=== PATIENT | female | born 1955 | race Hispanic/Latino ===

== ENCOUNTER → 2018-08-22 10:38 | Outpatient (CLI) | payer BC, SELFPAY ==
--- NOTE | 2018-08-22 | DI.MG.S_ITS ---
BILATERAL DIGITAL SCREENING MAMMOGRAM 3D/2D WITH CAD: 08/22/2018 CLINICAL: Routine screening. Comparison is made to exams dated: 08/16/2017 mammogram, 07/19/2017 mammogram, 07/13/2016 mammogram, and 07/12/2015 mammogram - [facility]. The tissue of both breasts is heterogeneously dense. This may lower the sensitivity of mammography. Current study was also evaluated with a Computer Aided Detection (CAD) system. No significant masses, calcifications, or other findings are seen in either breast. There has been no significant interval change. IMPRESSION: NEGATIVE There is no mammographic evidence of malignancy. A 1 year screening mammogram is recommended. This exam was interpreted at Station ID: [id number]. NOTE: For mammograms, a report in lay terms will be sent to the patient. Approximately 15% of breast malignancies will not be visualized mammographically. In the management of a palpable breast mass, a negative mammogram must not discourage biopsy of a clinically suspicious lesion. Electronically Signed By: Hima jordan/adeel:08/22/2018 14:47:00 letter sent: Normal Exam ACR BI-RADS Category 1: Negative 3341F
== END ==
PROVIDERS: PCP Family Medicine; Visit Provider Family Medicine
DX: Z12.31 Encounter for screening mammogram for malignant neoplasm of breast (principal)
CPT/HCPCS: 77063; 77067

== ENCOUNTER → 2019-08-24 12:32 | Outpatient (CLI) | payer BC, SELFPAY ==
--- NOTE | 2019-08-24 | DI.MG.S_ITS ---
BILATERAL DIGITAL SCREENING MAMMOGRAM 3D/2D WITH CAD: 08/24/2019 CLINICAL: Routine screening. Comparison is made to exams dated: 08/22/2018 mammogram, 07/19/2017 mammogram, 07/13/2016 mammogram, and 07/12/2015 mammogram - [facility]. The tissue of both breasts is heterogeneously dense. This may lower the sensitivity of mammography. Current study was also evaluated with a Computer Aided Detection (CAD) system. No significant masses, calcifications, or other findings are seen in either breast. There has been no significant interval change. IMPRESSION: NEGATIVE There is no mammographic evidence of malignancy. A 1 year screening mammogram is recommended. This exam was interpreted at Station ID: [id number]. NOTE: For mammograms, a report in lay terms will be sent to the patient. Approximately 15% of breast malignancies will not be visualized mammographically. In the management of a palpable breast mass, a negative mammogram must not discourage biopsy of a clinically suspicious lesion. Electronically Signed By: Marek bernard/adeel:08/25/2019 18:05:56 letter sent: Normal Exam ACR BI-RADS Category 1: Negative 3341F
== END ==
PROVIDERS: PCP Family Medicine; Visit Provider Family Medicine
DX: Z12.31 Encounter for screening mammogram for malignant neoplasm of breast (principal)
CPT/HCPCS: 77063; 77067

== ENCOUNTER → 2020-11-07 09:57 | Outpatient (CLI) | payer BC, SELFPAY ==
--- NOTE | 2020-11-07 10:04 | DI.RAD.S_ITS ---
PROCEDURE: XR CALCANEOUS LT MIN 2V INDICATIONS: LT HEEL PAIN TECHNIQUE: Two views of the calcaneus were acquired. COMPARISON: None. FINDINGS: Bones: No fractures or dislocations. No suspicious bony lesions. Plantar calcaneal spur. Soft tissues: No suspicious calcifications. Achilles tendon appears normal. IMPRESSION: Plantar calcaneal spur. Dictated by: Hubert Lee M.D. on 11/07/2020 at 12:15 Approved by: Hubert Lee M.D. on 11/07/2020 at 12:16
== END ==
PROVIDERS: PCP Family Medicine; Referring Provider Family Medicine; Visit Provider Family Medicine
DX: M79.672 Pain in left foot (principal); M77.32 Calcaneal spur, left foot
CPT/HCPCS: 73650

== ENCOUNTER → 2020-11-11 14:56 | Outpatient (CLI) | payer BC, SELFPAY ==
[2020-11-11] MEDS: COVID-19 VACC #1, MRNA(MOD) 100 MCG/0.5 ML VIAL IM (15:21)
== END ==
PROVIDERS: PCP Family Medicine; Visit Provider Internal Medicine
DX: Z23 Encounter for immunization (principal)
CPT/HCPCS: 0011A; 91301

== ENCOUNTER → 2020-12-07 16:22 | Outpatient (CLI) | payer BC, SELFPAY ==
[2020-12-07] MEDS: COVID-19 VACC #2, MRNA(MOD) 100 MCG/0.5 ML VIAL IM (16:30)
== END ==
PROVIDERS: PCP Family Medicine; Visit Provider Internal Medicine
DX: Z23 Encounter for immunization (principal)
CPT/HCPCS: 0012A; 91301

== ENCOUNTER → 2022-07-07 11:53 | Outpatient (CLI) | payer MEDICARE, OTHER, SELFPAY | PROVIDERS: PCP Family Medicine; Visit Provider Registered Nurse | DX: N39.0 Urinary tract infection, site not specified (principal) | CPT/HCPCS: 87077; 87086; 87186 ==

== ENCOUNTER → 2022-11-13 12:53 | Outpatient (CLI) | payer MEDICARE, OTHER, SELFPAY ==
--- NOTE | 2022-11-13 | DI.MG.S_ITS ---
BILATERAL DIGITAL SCREENING MAMMOGRAM 3D/2D WITH CAD: 11/13/2022 CLINICAL: Routine screening. Comparison is made to exams dated: 08/24/2019 mammogram, 08/22/2018 mammogram, and 08/16/2017 mammogram - [facility]. Both breasts are heterogeneously dense, which may obscure small masses (category c / 51-75% glandular tissue). Current study was also evaluated with a Computer Aided Detection (CAD) system. There is possible developing architectural distortion in the right breast anterior depth lateral region seen on the craniocaudal view only. There is a possible developing irregular high density asymmetry in the left breast central to the nipple middle depth. No other significant masses or calcifications are seen in either breast. IMPRESSION: INCOMPLETE: NEEDS ADDITIONAL IMAGING EVALUATION The possible developing architectural distortion in the right breast anterior depth lateral region seen on the craniocaudal view only is indeterminate. Additional views with possible ultrasound are recommended. The possible developing irregular high density asymmetry in the left breast central to the nipple middle depth is indeterminate. Additional views with possible ultrasound are recommended. Based on the Tyrer Cuzick model (a risk assessment model) the patient's lifetime risk is 9.9% and her 10 year risk is 4.8%. According to the ACR, ACS, and NCCN guidelines, an annual breast MRI exam along with mammogram is recommended if the patient's lifetime risk is 20% or greater. This exam was interpreted at Station ID: [id number]. NOTE: For mammograms, a report in lay terms will be sent to the patient. Approximately 15% of breast malignancies will not be visualized mammographically. In the management of a palpable breast mass, a negative mammogram must not discourage biopsy of a clinically suspicious lesion. Electronically Signed By: Meghan vaughn/adeel:11/13/2022 15:31:33 letter sent: Additional Imaging Needed ACR BI-RADS Category 0: Incomplete 3340F
== END ==
PROVIDERS: PCP Family Medicine; Referring Provider Family Medicine; Visit Provider Family Medicine
DX: Z12.31 Encounter for screening mammogram for malignant neoplasm of breast (principal); Z78.0 Asymptomatic menopausal state; Z13.820 Encounter for screening for osteoporosis; M85.88 Other specified disorders of bone density and structure, other site
CPT/HCPCS: 77063; 77067; 77080

== ENCOUNTER → 2022-12-10 09:28 | Outpatient (CLI) | payer MEDICARE, OTHER, SELFPAY ==
--- NOTE | 2022-12-10 | DI.MG.S_ITS ---
BILATERAL DIGITAL DIAGNOSTIC MAMMOGRAM 3D/2D WITH ADDITIONAL VIEWS: 12/10/2022 CLINICAL: Additional evaluation requested from prior study. Comparison is made to exams dated: 11/13/2022 mammogram, 08/24/2019 mammogram, and 08/22/2018 mammogram - [facility]. Both breasts are heterogeneously dense, which may obscure small masses (category c / 51-75% glandular tissue). The possible architectural distortion in the right breast anterior depth lateral region seen on the craniocaudal view only is not reproduced and presumably represented superimposed breast tissue. There is an oval focal asymmetry with a circumscribed margin in the left breast at 6 o'clock anterior depth. This is seen in additional views. No other significant masses or calcifications are seen in either breast. IMPRESSION: INCOMPLETE: NEEDS ADDITIONAL IMAGING EVALUATION The oval focal asymmetry in the left breast at 6 o'clock anterior depth is indeterminate. An ultrasound is recommended. Based on the Tyrer Cuzick model (a risk assessment model) the patient's lifetime risk is 9.9% and her 10 year risk is 4.8%. According to the ACR, ACS, and NCCN guidelines, an annual breast MRI exam along with mammogram is recommended if the patient's lifetime risk is 20% or greater. This exam was interpreted at Station ID: [id number]. NOTE: For mammograms, a report in lay terms will be sent to the patient. Approximately 15% of breast malignancies will not be visualized mammographically. In the management of a palpable breast mass, a negative mammogram must not discourage biopsy of a clinically suspicious lesion. Electronically Signed By: Joshua lynn/adeel:12/10/2022 11:30:29 ACR BI-RADS Category 0: Incomplete 3340F
--- NOTE | 2022-12-10 09:29 | DI.US.S_ITS ---
LIMITED ULTRASOUND OF LEFT BREAST: 12/10/2022 CLINICAL: Patient returns today to evaluate a focal asymmetry in the left breast. Comparison is made to exams dated: 12/10/2022 mammogram, 11/13/2022 mammogram, 08/24/2019 mammogram, and 08/22/2018 mammogram - [facility]. Color flow ultrasound of the left breast 6 o'clock region was performed. Jacob scale images of the real-time examination were reviewed. There is a 0.7 cm x 0.6 cm x 0.5 cm oval cyst with a septated internal wall in the left breast at 6 o'clock anterior depth 3 cm from the nipple. This oval cyst is hypoechoic. This correlates with mammography findings. Color flow imaging demonstrates that there is no vascularity present. IMPRESSION: PROBABLY BENIGN The 0.7 cm x 0.6 cm x 0.5 cm oval cyst in the left breast is consistent with a complicated cyst and is probably benign. A follow-up left ultrasound in 6 months is recommended to demonstrate stability. This exam was interpreted at Station ID: [id number]. Electronically Signed By: Joshua lynn/adeel:12/10/2022 11:34:59 letter sent: Followup Recommended Ultrasound BI-RADS: 3 Probably benign
== END ==
PROVIDERS: PCP Family Medicine; Referring Provider Family Medicine; Visit Provider Family Medicine
DX: R92.8 Other abnormal and inconclusive findings on diagnostic imaging of breast (principal); N60.02 Solitary cyst of left breast
CPT/HCPCS: 76642; 77066; G0279

== ENCOUNTER → 2023-02-22 10:44 | Outpatient (CLI) | payer MEDICARE, OTHER, SELFPAY ==
--- NOTE | 2023-02-22 | DI.RAD.S_ITS ---
PROCEDURE: XR KNEE RT 3V INDICATIONS: Pain in right knee TECHNIQUE: 3 views of the knee were acquired. COMPARISON: None. FINDINGS: Bones: No fractures or dislocations. Mild tricompartmental osteoarthritis is seen with joint space narrowing and subchondral sclerosis. No significant patellar subluxation. No suspicious bony lesions. Soft tissues: No joint effusion. No suspicious soft tissue calcifications. IMPRESSION: No acute right knee fracture or dislocation. No significant joint effusion. Mild tricompartmental osteoarthritis. Dictated by: Denzel Cosby M.D. on 02/22/2023 at 11:22 Approved by: Denzel Cosby M.D. on 02/22/2023 at 11:23
== END ==
PROVIDERS: PCP Family Medicine; Referring Provider Family Medicine; Visit Provider Family Medicine
DX: M25.561 Pain in right knee (principal); M17.11 Unilateral primary osteoarthritis, right knee
CPT/HCPCS: 73562

== ENCOUNTER 2023-04-12 09:43 | Day surgery (SDC) | payer MEDICARE, OTHER, SELFPAY ==
--- NOTE | 2023-04-12 | PATH_ITS ---
[facility] Accession Number: [id number] No. of containers..02 Tissue . 01 Material submitted: . PART A: colon - DESCENDING COLON POLYP X2 PART B: rectum - RECTUM POLYP X3 . 01 Diagnosis: A. Descending Colon Polyp x2: Superficial portions of colorectal mucosa x 2, one with a benign lymphoid aggregate, with no significant histomorphologic abnormality. Additional levels through the block are non-contributory. . B. Rectum Polyp x3: Portions of hyperplastic polyp x2. Superficial portion of colorectal mucosa x1 with no significant histomorphologic abnormality. MRV 04/24/2023 1604 Local . 01 Electronically signed: . Alea Ascencio MD, Pathologist NPI- [id number] . 01 Gross description: . Part A: DESCENDING COLON POLYP X2: Received in formalin are 2 fragment(s) of garza, soft tissue measuring 0.1 x 0.1 x 0.1 cm to 0.2 x 0.2 x 0.2 cm submitted entirely in 1 cassette(s) Part B: RECTUM POLYP X3: Received in formalin are 2 fragment(s) of garza, soft tissue measuring 0.2 x 0.2 x 0.2 cm to 0.3 x 0.3 x 0.2 cm submitted entirely in 1 cassette(s) /CORDELL 04/19/2023 2323 Local . 01 Pathologist provided ICD-10: K63.5 . 01 CPT . 213457, [id number] Specimen Comment: A courtesy copy of this report has been sent to [facility] Pathology Performed at: 01 [facility] [address] [place] [address] [address], [place], [place] [id number] MD Hima Whitehead MD Phone: [phone]
[2023-04-12 10:07] VITALS: BP 180/96; PULSE 84; RESP 16; TEMP 36.4; O2SAT 97; BMI 24.0
[2023-04-12] MEDS: LACTATED RINGERS 1,000 ML 42 ML IV (10:28)
--- NOTE | 2023-04-12 11:42 | P.HP_ITS ---
History of Present Illness History of Present Illness Date Patient Seen: 04/12/23 Chief complaint: Colonoscopy, history of polyps Narrative: Mrs. Cuba is 67-year-old female who presents today for screening colonoscopy. She believes her last colonoscopy was about 10 years ago was here she is not sure she can not remember if she had polyps or not. There is a record of a history of polyps. She is no family history of colon cancer and has not had any concerning symptoms. She does report having had some difficulty with scheduling and confusing and disorganized messages from our staff. Otherwise she had no concern or question COUNT INCLUDES THE [facility] Surgical History History of tonsillectomy Status post cholecystectomy Status post surgery (02/25/15) Family History Mother Bladder cancer Bone cancer Social History household members: spouse Smoking Status: Never smoker alcohol intake: never Meds Home Medications and Allergies Home Medications Medication Instructions Recorded Confirmed Type atorvastatin 10 mg tablet 10 mg 04/12/23 History esomeprazole magnesium 40 mg 40 mg PO 3XD 04/12/23 04/12/23 History capsule,delayed release Allergies Allergy/AdvReac Type Severity Reaction Status Date / Time fish oil AdvReac Verified 04/12/23 09:54 Exam Vital Signs (past 8 hours): - 04/12/23 10:07 Temperature 97.5 F L Pulse Rate 84 Respiratory Rate 16 Blood Pressure 180/96 H Pulse Oximetry 97 Oxygen Delivery Method Room Air Oxygen Delivery Method Room Air Const General: cooperative, healthy appearing and comfortable Orientation: alert, awake and oriented x3 HENMT Head: normal to inspection Eyes General: appearance normal, both eyes and all related structures Neck Neck: normal visual inspection Resp Effort & Inspection: normal respiratory effort and able to speak in complete sentences GI Palpation: soft and No tender Assessment & Plan Assessment and plan (1) History of colon polyps: Status: Acute (2) Colon cancer screening: Status: Acute Assessment & Plan narrative: Presents today for screening colonoscopy I discussed the risks benefits and alternatives including but not limited to perforation of the colon and an incomplete exam she fully understands these risks and would like to proceed.
[2023-04-12 12:26] VITALS: BP 109/69; PULSE 67; RESP 10; TEMP 36.1; O2SAT 99
[2023-04-12 12:31] VITALS: BP 118/67; PULSE 71; RESP 19; O2SAT 100
[2023-04-12 12:36] VITALS: BP 128/73; PULSE 59; RESP 12; O2SAT 99
--- NOTE | 2023-04-12 12:39 | P.OP.COLON_ITS ---
Operative Date/Time/Diagnoses Date of procedure: 04/12/23 Time of procedure: 12:39 Pre-op diagnosis: Colon cancer screening, history of polyps Post-op diagnosis: same Procedure & Clinicians Study performed: Colonoscopy and biopsy Same procedure as scheduled: Yes Indications: Colon cancer screening, history of polyps Surgeon: Annamaria Chavez Procedure Notes Procedure in detail: Patient was taken to the endoscopy suite and placed in a left lateral decubitus position. A time-out was performed. With the help of anesthesiology provider conscious sedation was induced and monitored throughout the case. A digital rectal exam was performed and there were no masses or strictures. There were a few external anal skin tags. The colonoscope was introduced into the anal canal and advanced through to the cecum. A photograph of the appendiceal orifice was obtained. The bowel prep was good [place] bowel prep score of 2. Scope was then withdrawn and 2 small polyps were seen in the descending colon. The 1st was removed with a biopsy forceps and was quite small possibly not a true polyp. The 2nd 1 was also removed with 2 bites of the biopsy forceps but was though still small slightly larger and had a sessile appearance. Further withdrawal revealed several small rectal polyps 3 of the larger ones were removed and sent in a specimen container together. They all had the appearance of hyperplastic polyps. A photograph was obtained. There were a few irritated areas in the rectum likely from prep. The internal hemorrhoid piles appeared normal as the scope was withdrawn through the anal canal. The scope was withdrawn for a total of 20 minutes including biopsy times. Findings: divertiulosis and polyp(s) Specimen(s): other (1. Descending colon polyps x2 2. Rectal polyps x3) Complications: none Post-procedure Plan for aftercare: Probably a 3-5 year follow-up depending on the pathology of the polyps. I do recommend a fiber supplement.
[2023-04-12 12:40] VITALS: BP 122/93; PULSE 65; RESP 11; O2SAT 98
[2023-04-12 12:46] VITALS: BP 117/74; PULSE 60; RESP 10; TEMP 36.2; O2SAT 99
== END 2023-04-12 13:01 | disposition home or self-care (01) ==
PROVIDERS: PCP Family Medicine; Referring Provider Surgery; Visit Provider Surgery
PROC: 0DJD8ZZ Inspection of Lower Intestinal Tract, Via Natural or Artificial Opening Endoscopic (ICD-10-PCS; CPT 45378; principal; 2023-04-12 10:45)
DX: Z12.11 Encounter for screening for malignant neoplasm of colon (principal); Z86.010 Personal history of colon polyps; K62.1 Rectal polyp
CPT/HCPCS: 45380; J2704

== ENCOUNTER → 2023-06-10 08:14 | Outpatient (CLI) | payer MEDICARE, OTHER, SELFPAY ==
--- NOTE | 2023-06-10 | DI.US.S_ITS ---
LIMITED ULTRASOUND OF LEFT BREAST: 06/10/2023 CLINICAL: Patient returns today to evaluate a focal asymmetry in the left breast. Comparison is made to exams dated: 12/10/2022 ultrasound, 12/10/2022 mammogram, 11/13/2022 mammogram, 08/24/2019 mammogram, 08/22/2018 mammogram, and 08/16/2017 ultrasound - [facility]. Color flow and real-time ultrasound of the left breast 6 o'clock region were performed. Jacob scale images of the real-time examination were reviewed. There is a 0.6 cm x 0.6 cm x 0.6 cm oval complicated cyst with a septated internal wall in the left breast at 6 o'clock anterior depth 3 cm from the nipple. This abnormality is not significantly changed and correlates with mammography findings. Color flow imaging demonstrates that there is no vascularity present. IMPRESSION: PROBABLY BENIGN The 0.6 cm complicated cyst in the left breast is not significantly changed and is probably benign. A follow-up ultrasound in 6 months is recommended to demonstrate stability. Patient will be due for mammogram at that time. Exam findings were conveyed to the patient. Patient is advised to monitor for significant change. Clinical follow-up as needed. This exam was interpreted at Station ID: [id number]. Electronically Signed By: Bill Denney M.D. [facility] [place]06/10/2023 09:11:35 letter sent: Followup Recommended Ultrasound BI-RADS: 3 Probably benign
== END ==
PROVIDERS: PCP Family Medicine; Referring Provider Family Medicine; Visit Provider Family Medicine
DX: R92.8 Other abnormal and inconclusive findings on diagnostic imaging of breast (principal); N60.02 Solitary cyst of left breast
CPT/HCPCS: 76642

== ENCOUNTER → 2023-12-02 10:13 | Outpatient (CLI) | payer MEDICARE, OTHER, SELFPAY ==
--- NOTE | 2023-12-02 10:15 | DI.MG.S_ITS ---
BILATERAL DIGITAL DIAGNOSTIC MAMMOGRAM 3D/2D: 12/02/2023 CLINICAL: Short term follow up. Comparison is made to exams dated: 12/10/2022 mammogram, 11/13/2022 mammogram, and 08/24/2019 mammogram - [facility]. Both breasts are heterogeneously dense, which may obscure small masses (category c / 51-75% glandular tissue). The oval focal asymmetry with a circumscribed margin in the left breast at 6 o'clock anterior depth is stable. This is seen in additional views. No other significant masses, calcifications, or other findings are seen in either breast. Mammograms are otherwise stable. IMPRESSION: INCOMPLETE: NEEDS ADDITIONAL IMAGING EVALUATION Bilateral mammograms are stable. The oval focal asymmetry in the left breast is stable. An ultrasound is recommended to confirm stability. This was performed immediately following this exam. Based on the Tyrer Cuzick model (a risk assessment model) the patient's lifetime risk is 9.5% and her 10 year risk is 4.8%. According to the ACR, ACS, and NCCN guidelines, an annual breast MRI exam along with mammogram is recommended if the patient's lifetime risk is 20% or greater. This exam was interpreted at Station ID: [id number]. NOTE: For mammograms, a report in lay terms will be sent to the patient. Approximately 15% of breast malignancies will not be visualized mammographically. In the management of a palpable breast mass, a negative mammogram must not discourage biopsy of a clinically suspicious lesion. Electronically Signed By: Meghan vaughn/:12/02/2023 11:16:44 ACR BI-RADS Category 0: Incomplete 3340F
--- NOTE | 2023-12-02 10:16 | DI.US.S_ITS ---
LIMITED ULTRASOUND OF LEFT BREAST: 12/02/2023 CLINICAL: 6 month follow-up of cysts. Comparison is made to exams dated: 12/02/2023 mammogram, 06/10/2023 ultrasound, 12/10/2022 ultrasound, 12/10/2022 mammogram, 11/13/2022 mammogram, and 08/24/2019 mammogram - [facility]. Color flow ultrasound of the left breast 6 o'clock region was performed. Jacob scale images of the real-time examination were reviewed. There is a stable 0.6 cm x 0.5 cm x 0.4 cm irregular cluster of microcysts in the left breast at 6 o'clock anterior depth 3 cm from the nipple. This cluster is hypoechoic. This correlates with mammography findings. Color flow imaging demonstrates that there is no vascularity present. IMPRESSION: PROBABLY BENIGN The 0.6 cm cluster of cysts in the left breast is stable, consistent with apocrine metaplasia or a complicated cyst and is probably benign. A follow-up ultrasound in 6 months is recommended to demonstrate stability. Findings and recommendations were conveyed to the patient at time of exam. This exam was interpreted at Station ID: [id number]. Electronically Signed By: Meghan vaughn/:12/02/2023 11:46:17 letter sent: Followup Recommended Ultrasound BI-RADS: 3 Probably benign
== END ==
LOC: MAMMO 10:14
PROVIDERS: PCP Family Medicine; Referring Provider Family Medicine; Visit Provider Family Medicine
DX: R92.8 Other abnormal and inconclusive findings on diagnostic imaging of breast (principal); R92.333 Mammographic heterogeneous density, bilateral breasts; N60.02 Solitary cyst of left breast
CPT/HCPCS: 76642; 77066; G0279

== ENCOUNTER → 2024-03-17 10:27 | Outpatient (CLI) | payer MEDICARE, OTHER, SELFPAY ==
--- NOTE | 2024-03-17 11:01 | DI.RAD.S_ITS ---
PROCEDURE: XR KNEE LT 3V INDICATIONS: CHRONIC PAIN OF LEFT KNEE TECHNIQUE: 3 views of the knee were acquired. COMPARISON: [facility], CR, XR KNEE RT 3V, 02/22/2023, 10:43. FINDINGS: Bones: No fractures or dislocations. Tricompartmental osteoarthritic changes of the bilateral knees with mild osteophytosis and moderate medial compartment joint space narrowing bilaterally. No suspicious bony lesions. Soft tissues: Small joint effusion. No suspicious soft tissue calcifications. IMPRESSION: No acute osseous abnormalities. 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 Dictated by: Chidi Paz M.D. on 03/17/2024 at 12:33 Approved by: Chidi Paz M.D. on 03/17/2024 at 12:34
== END ==
PROVIDERS: PCP Family Medicine; Referring Provider Family Medicine; Visit Provider Family Medicine
DX: M25.562 Pain in left knee (principal); M25.462 Effusion, left knee; G89.29 Other chronic pain
CPT/HCPCS: 73562

== ENCOUNTER → 2024-06-22 08:33 | Outpatient (CLI) | payer MEDICARE, OTHER, SELFPAY ==
--- NOTE | 2024-06-22 08:34 | DI.US.S_ITS ---
LIMITED ULTRASOUND OF LEFT BREAST: 06/22/2024 CLINICAL: 6 month follow-up of cysts. Comparison is made to exams dated: 12/02/2023 ultrasound, 12/02/2023 mammogram, 06/10/2023 ultrasound, 12/10/2022 ultrasound, 12/10/2022 mammogram, and 11/13/2022 mammogram - [facility]. Color flow ultrasound of the left breast 6 o'clock region was performed. Jacob scale images of the real-time examination were reviewed. There is a 0.4 cm x 0.4 cm x 0.3 cm cluster of irregular cysts in the left breast at 6 o'clock anterior depth 3 cm from the nipple. This cluster of irregular cysts is hypoechoic. These abnormalities continue to decrease in size and represents a change and correlates with mammography findings. Color flow imaging demonstrates that there is no vascularity present. IMPRESSION: BENIGN There is no sonographic evidence of malignancy. The 0.4 cm x 0.4 cm x 0.3 cm cluster of irregular cysts in the left breast is consistent with apocrine metaplasia or a complicated cyst and is benign. Return to annual mammogram screening schedule is recommended (due approximately October 2024). Findings and recommendations were conveyed to the patient during today's evaluation. This exam was interpreted at Station ID: [id number]. Electronically Signed By: Douglas Anders M.D. [facility]/:06/22/2024 09:00:31 letter sent: Normal Exam Ultrasound BI-RADS: 2 Benign
== END ==
LOC: US 08:33
PROVIDERS: PCP Family Medicine; Referring Provider Family Medicine; Visit Provider Family Medicine
DX: R92.8 Other abnormal and inconclusive findings on diagnostic imaging of breast (principal); N60.02 Solitary cyst of left breast
CPT/HCPCS: 76642

== ENCOUNTER → 2024-12-07 11:24 | Outpatient (CLI) | payer MEDICARE, OTHER, SELFPAY ==
--- NOTE | 2024-12-07 11:26 | DI.MG.S_ITS ---
BILATERAL DIGITAL SCREENING MAMMOGRAM 3D/2D WITH CAD: 12/07/2024 CLINICAL: Routine screening. Comparison is made to exams dated: 12/02/2023 mammogram, 11/13/2022 mammogram, and 08/24/2019 mammogram - [facility]. There are scattered areas of fibroglandular density (category b / 25%-50% glandular tissue). Current study was also evaluated with a Computer Aided Detection (CAD) system. There is a possible developing high density asymmetry in the right breast middle depth superior region seen on the mediolateral oblique view only. No other significant masses, calcifications, or other findings are seen in either breast. IMPRESSION: INCOMPLETE: NEED ADDITIONAL IMAGING EVALUATION The possible developing high density asymmetry in the right breast most likely is fibroglandular tissue and is indeterminate. Additional views with possible ultrasound are recommended. Based on the Tyrer Cuzick model (a risk assessment model) the patient's lifetime risk is 6.0% and her 10 year risk is 3.2%. According to the ACR, ACS, and NCCN guidelines, an annual breast MRI exam along with mammogram is recommended if the patient's lifetime risk is 20% or greater. This exam was interpreted at Station ID: [id number]. NOTE: For mammograms, a report in lay terms will be sent to the patient. Approximately 15% of breast malignancies will not be visualized mammographically. In the management of a palpable breast mass, a negative mammogram must not discourage biopsy of a clinically suspicious lesion. Electronically Signed By: Meghan vaughn/adeel:12/07/2024 16:37:35 letter sent: Additional Imaging Needed ACR BI-RADS Category 0: Incomplete: Need Additional Imaging Evaluation
== END ==
PROVIDERS: PCP Family Medicine; Referring Provider Family Medicine; Visit Provider Family Medicine
DX: Z12.31 Encounter for screening mammogram for malignant neoplasm of breast (principal)
CPT/HCPCS: 77063; 77067

== ENCOUNTER → 2025-01-18 | Outpatient (CLI) | payer MEDICARE, OTHER, SELFPAY ==
--- NOTE | 2025-01-18 09:28 | DI.MG.S_ITS ---
MM diagnostic mammo unilat RT, US breast RT limited: 01/18/2025 BI-RADS: 3 CLINICAL: 69-year old female for right diagnostic mammogram and right diagnostic breast ultrasound. The patient presents for additional evaluation of an inconclusive screening mammogram - asymmetry. Tyrer-Cuzick lifetime risk of 5.2%. No personal or first-degree family history of breast cancer. PRIOR EXAMS 06/22/2024, 12/02/2023, 06/10/2023, 12/10/2022, 11/13/2022, 08/24/2019, 08/22/2018, 08/16/2017, 07/19/2017, 07/13/2016, 07/12/2015. MAMMOGRAPHY TECHNIQUE: 2D and 3D (tomosynthesis) digital mammographic views obtained, with additional images as needed for full coverage. Current study was also evaluated with a Computer Aided Detection (CAD) system. ULTRASOUND TECHNIQUE: Real-time resendiz scale and color doppler imaging of the area of clinical interest was performed with image documentation. TARGETED Right Breast Ultrasound: Real-time ultrasound exam was performed focused to area of clinical and/or imaging concern. DENSITY Right: C. The breasts are heterogeneously dense, which may obscure small masses. MAMMOGRAPHY FINDINGS Right (finding-1): MLO only, Upper, Middle depth: The questioned developing asymmetry does not persist with additional views and represents superimposition of normal fibroglandular breast tissue. ULTRASOUND FINDINGS Right: Upper Outer at 10:00, 5 cm from nipple, measuring 0.5 x 0.2 x 0.4 cm: This could represent a complicated cyst versus clustered microcysts. This is an incidental finding. Right (finding-1): Upper Outer Quadrant, 5 cm from nipple: There is no suspicious sonographic finding to account for imaging concern of an asymmetry on mammography. The area from 10-11 o'clock, 5 cm from the nipple was scanned. IMPRESSION: Right: Upper Outer at 10:00, 5 cm from nipple, measuring 0.5 x 0.2 x 0.4 cm * Probably Benign. RECOMMENDATIONS Right: Upper Outer at 10:00, 5 cm from nipple * Six month followup with diagnostic ultrasound. COMMENTS: Findings and recommendations were conveyed to the patient during today's evaluation. OVERALL ASSESSMENT CATEGORY BI-RADS-3: Probably Benign. ELECTRONICALLY SIGNED: Ilda Phillip M.D. on 01/18/2025 at 10:57:30 AM PT Interpreting Station ID: [id number]
== END ==
PROVIDERS: PCP Family Medicine; Referring Provider Family Medicine; Visit Provider Family Medicine
DX: R92.8 Other abnormal and inconclusive findings on diagnostic imaging of breast (principal); N63.11 Unspecified lump in the right breast, upper outer quadrant; R92.331 Mammographic heterogeneous density, right breast
CPT/HCPCS: 76642; 77065; G0279

== ENCOUNTER → 2025-08-02 10:16 | Outpatient (CLI) | payer MEDICARE, OTHER, SELFPAY ==
--- NOTE | 2025-08-02 10:18 | DI.US.S_ITS ---
US breast RT limited: 08/02/2025. BI-RADS: 2 CLINICAL: 70-year old female for right diagnostic breast ultrasound that is a follow-up to diagnostic mammogram on 01/18/2025. Tyrer-Cuzick lifetime risk of 4.9%. No personal or first-degree family history of breast cancer. PRIOR EXAMS 01/18/2025, 12/07/2024, 06/22/2024, 12/02/2023, 06/10/2023, 12/10/2022, 11/13/2022, 08/24/2019, 08/22/2018. ULTRASOUND TECHNIQUE Real-time resendiz scale and color doppler imaging of the area of clinical interest was performed with image documentation. Right targeted breast ultrasound of the area of clinical interest and the axilla was performed with image documentation. ULTRASOUND FINDINGS Right: Upper Outer at 10:00, 5 cm from nipple, measuring 0.4 x 0.2 x 0.4 cm: Correlating with prior imaging concern, there is a simple anechoic cyst showing posterior acoustic enhancement. Doppler shows no vascularity. Right: Axilla: No abnormal lymph nodes are seen in the axilla. IMPRESSION: Right * No evidence of malignancy with benign findings. RECOMMENDATIONS Bilateral * Annual screening mammography (due November 2025). COMMENTS: Findings and recommendations were conveyed to the patient during today's evaluation. OVERALL ASSESSMENT CATEGORY BI-RADS-2: Benign. ELECTRONICALLY SIGNED: Ilda Phillip M.D. on 08/02/2025 at 10:58:43 AM PT Interpreting Station ID: [id number]
== END ==
LOC: US 10:17
PROVIDERS: PCP Family Medicine; Referring Provider Family Medicine; Visit Provider Family Medicine
DX: R92.8 Other abnormal and inconclusive findings on diagnostic imaging of breast (principal); N60.01 Solitary cyst of right breast
CPT/HCPCS: 76642